=== PATIENT | female | born 1990 | race Two or more races ===

== ENCOUNTER 2017-11-03 17:25 | Emergency (ER) | payer SELFPAY ==
[~2017-11-03] VITALS: Ht 154.9 cm; Wt 54.0 kg
[2017-11-03 19:21] LABS: CHLORIDE 108 mEq/L (98-107)
[2017-11-03 19:24] LABS: PARTIAL THROMBOPLASTIN TIME 28.3 sec (23.4-31.0); PROTHROMBIN TIME 10.9 sec (9.4-11.6)
[2017-11-03 19:25] LABS: BASOPHILS % 0.2 % (0.0-2.0); EOSINOPHILS % 0.3 % (0.0-5.0); HEMATOCRIT. 38.7 % (36.0-48.0); HEMOGLOBIN. 12.9 g/dL (12.0-16.0); LYMPHOCYTES % 22.3 % (20.0-50.0); MEAN CORPUSCULAR HEMOGLOBIN 29.6 pg (28.0-32.0); MEAN CORPUSCULAR VOLUME 88.3 fL (81.0-99.0); MONOCYTES % 5.7 % (2.0-8.0); NEUTROPHILS % 71.5 % (40.0-76.0); PLATELET 209 x1000/uL (130-400); RED BLOOD CELL COUNT 4.38 mill/uL (4.2-5.4); RED CELL DISTRIBUTION WIDTH 13.7 % (11.6-14.6)
[2017-11-03 20:25] LABS: CLARITY URINE TURBID (CLEAR); COLOR URINE YELLOW (YELLOW); KETONES URINE NEGATIVE (NEGATIVE); LEUKOCYTE ESTERASE URINE NEGATIVE (NEGATIVE); NITRITE URINE NEGATIVE (NEGATIVE); OCCULT BLOOD URINE NEGATIVE (NEGATIVE); PH URINE 8.5 (4.5-8.0); PROTEIN URINE NEGATIVE (NEGATIVE); SPECIFIC GRAVITY URINE 1.025 (1.005-1.030); UROBILINOGEN URINE 0.2 E.U./dL (0.2-1.0)
[2017-11-03 20:49] LABS: *AMPHETAMINES SCREEN URINE NEGATIVE (NEGATIVE); *BARBITURATES SCREEN URINE NEGATIVE (NEGATIVE); *BENZODIAZEPINES SCREEN URINE NEGATIVE (NEGATIVE); *COCAINE SCREEN URINE NEGATIVE (NEGATIVE); METHADONE URINE SCREEN NEGATIVE (NEGATIVE)
[2017-11-03 20:50] LABS: CANNABINOID URINE SCREEN PRESUMTIVE POSITIVE (NEGATIVE); OPIATES URINE SCREEN NEGATIVE (NEGATIVE); PHENCYCLIDINE URINE SCREEN NEGATIVE (NEGATIVE)
[2017-11-03] MEDS ORDERED: KETOROLAC 30MG/ML VIAL IV ONE (22:45)
[2017-11-03] MEDS ORDERED: PROCHLORPERAZINE MALEATE 10MG TABLET PO ONE (22:45)
[2017-11-03] MEDS ORDERED: DEXAMETHASONE 10 MG/ML VIAL IV ONE (22:45)
[2017-11-04 00:16] VITALS: BP 115/69
== END 2017-11-04 00:20 | disposition home or self-care (01) ==
LOC: ER 22:21
DX: R51 Headache (principal); R07.9 Chest pain, unspecified
CPT/HCPCS: 36415; 71045; 80053; 80305; 81003; 81025; 84484; 85025; 85610; 85730; 93005; 96374; 96375; 99285; J1100; J1885; Z7610; Q0164

== ENCOUNTER 2018-05-29 02:21 | Emergency (ER) | payer BC ==
[~2018-05-29] VITALS: Ht 154.9 cm; Wt 55.0 kg
[2018-05-29] MEDS ORDERED: ACETAMINOPHEN 500MG TABLET PO ONE (05:45)
[2018-05-29] MEDS ORDERED: SODIUM CHLORIDE 0.9% 1000ML BAG (SEPSIS BOLUS) IV ONE (06:30)
[2018-05-29] MEDS ORDERED: LIDOCAINE 1%/EPI 1:100,000 10 ML VIAL IJ ONE (06:30)
[2018-05-29 06:49] LABS: BASOPHILS % 0.1 % (0.0-2.0); EOSINOPHILS % 0.1 % (0.0-5.0); HEMATOCRIT. 32.8 % (36.0-48.0); HEMOGLOBIN. 10.9 g/dL (12.0-16.0); MEAN CORPUSCULAR HEMOGLOBIN 30.5 pg (28.0-32.0); MEAN CORPUSCULAR VOLUME 92.1 fL (81.0-99.0); MEAN PLATELET VOLUME 8.9 fl (7.4-10.4); MONOCYTES % 6.3 % (2.0-8.0); NEUTROPHILS % 82.5 % (40.0-76.0); PLATELET 195 x1000/uL (130-400); RED BLOOD CELL COUNT 3.56 mill/uL (4.2-5.4); RED CELL DISTRIBUTION WIDTH 13.1 % (11.6-14.6)
[2018-05-29 06:56] LABS: PARTIAL THROMBOPLASTIN TIME 30.2 sec (23.4-31.0); PROTHROMBIN TIME 9.9 sec (9.1-11.1)
[2018-05-29] MEDS ORDERED: CEFAZOLIN 1000MG PREMIX 50 ML IV ONE (07:30)
[2018-05-29 09:14] VITALS: BP 99/64
== END 2018-05-29 09:18 | disposition home or self-care (01) ==
LOC: ER 02:21
DX: O23.91 Unspecified genitourinary tract infection in pregnancy, first trimester (principal); L05.01 Pilonidal cyst with abscess; Z3A.10 10 weeks gestation of pregnancy
CPT/HCPCS: 10080; 36415; 85025; 85610; 85730; 87070; 87205; 96365; 99283; J0690; J3490; J7030

== ENCOUNTER 2020-01-22 16:36 | Emergency (ER) | payer BC ==
[~2020-01-22] VITALS: Ht 154.9 cm; Wt 56.0 kg
[2020-01-22 16:58] VITALS: BP 126/60
== END 2020-01-22 17:28 | disposition left against medical advice (07) ==
LOC: ER 16:36
DX: Z53.21 Procedure and treatment not carried out due to patient leaving prior to being seen by health care provider (principal)
CPT/HCPCS: 93005

== ENCOUNTER 2023-10-04 19:15 | Emergency (ER) | payer BC, OTHER ==
[~2023-10-04] VITALS: Ht 154.9 cm; Wt 56.0 kg
[2023-10-04 19:45] VITALS: O2SAT 100
[2023-10-04] MEDS: KETOROLAC 60MG/2ML VIAL IM STA (20:47)
[2023-10-04] MEDS: ACETAMINOPHEN WITH CODEINE 300/30MG TABLET PO STA (20:50)
[2023-10-04] MEDS ORDERED: NAPR-681 PO (23:11)
[2023-10-04] MEDS ORDERED: T3 PO (23:11)
[2023-10-05 00:09] VITALS: BP 134/65; PULSE 74; RESP 17; TEMP 97.8
== END 2023-10-05 00:13 | disposition home or self-care (01) ==
LOC: ER 19:15
DX: S33.9XXA Sprain of unspecified parts of lumbar spine and pelvis, initial encounter (principal); M54.50 Low back pain, unspecified; Z98.890 Other specified postprocedural states; X58.XXXA Exposure to other specified factors, initial encounter; Y93.89 Activity, other specified; Y92.89 Other specified places as the place of occurrence of the external cause; Y99.8 Other external cause status
CPT/HCPCS: 99283; 81025; 96372; J1885

== ENCOUNTER 2023-12-01 18:50 | Emergency (ER) | payer OTHER ==
[~2023-12-01] VITALS: Ht 154.9 cm; Wt 54.4 kg
[~2023-12-01 18:50] MED LIST: NAPR-681 PO; T3 PO
[2023-12-01 18:59] VITALS: O2SAT 100
[2023-12-01 19:48] LABS: BASOPHILS % 0.2 % (0.0-2.0); EOSINOPHILS % 0.3 % (0.0-5.0); HEMATOCRIT. 37.2 % (36.0-48.0); HEMOGLOBIN. 12.3 g/dL (12.0-16.0); LYMPHOCYTES % 20.5 % (20.0-50.0); MEAN CORPUSCULAR HEMOGLOBIN 30.8 pg (28.0-32.0); MEAN CORPUSCULAR HGB CONC 33.1 g/dL (31.0-37.0); MEAN CORPUSCULAR VOLUME 92.9 fL (81.0-99.0); MEAN PLATELET VOLUME 8.9 fl (7.4-10.4); MONOCYTES % 5.8 % (2.0-8.0); NEUTROPHILS % 73.2 % (40.0-76.0); PLATELET 200 x1000/uL (130-400); RED CELL DISTRIBUTION WIDTH 13.5 % (11.6-14.6); WHITE BLOOD COUNT 8.2 x1000/uL (4.5-11.0)
[2023-12-01 19:49] LABS: HCG SCREEN NEGATIVE
[2023-12-01 20:07] LABS: CREATININE 0.6 mg/dL (0.6-1.0); GLUCOSE 112 mg/dL (70-105); UREA NITROGEN BLOOD 12 mg/dL (9-23)
[2023-12-01 20:09] LABS: TROPONIN I HIGH SENSITIVITY < 4 ng/L (3.0-34)
[2023-12-01 20:14] LABS: CALCIUM 8.9 mg/dL (8.7-10.4); CARBON DIOXIDE 30 mEq/L (21-32); CHLORIDE 101 mEq/L (98-107); POTASSIUM 3.3 mEq/L (3.5-5.1); SODIUM 140 mEq/L (136-145)
[2023-12-01] MEDS ORDERED: IBUP-2029 MT (20:35)
[2023-12-01 21:42] VITALS: BP 100/52; PULSE 63; RESP 18; TEMP 98
== END 2023-12-01 21:44 | disposition home or self-care (01) ==
LOC: ER 18:50
DX: R07.89 Other chest pain (principal); R06.02 Shortness of breath; Z98.890 Other specified postprocedural states
CPT/HCPCS: 36415; 71045; 80048; 83880; 84484; 84703; 85025; 93005; 99285